=== PATIENT | male | born 1960 | race Native Hawaiian/Other Pacific Islander ===

== ENCOUNTER 2018-01-28 13:31 | Emergency (ER) | payer MEDICAID, OTHER ==
[~2018-01-28] VITALS: Ht 170.2 cm; Wt 92.0 kg
[~2018-01-28 13:31] MED LIST: OXCA300T PO
[2018-01-28] MEDS ORDERED: SODIUM CHLORIDE 0.9% FLUSH 10 ML FLUSH IVF PRN ×2 (13:45→14:00)
[2018-01-28 13:48] VITALS: BP 126/61; PULSE 81; RESP 22; TEMP 97.6; O2SAT 95
[2018-01-28 14:03] LABS: AUTOMATED NEUTROPHIL # 4.3 TH/MM3 (1.8-7.7); BASOPHIL % 0.6 % (0.0-2.0); EOSINOPHIL # 0.1 TH/MM3 (0-0.4); EOSINOPHIL % 1.9 % (0.0-4.0); HEMATOCRIT 43.5 % (39.0-51.0); HEMOGLOBIN 14.4 GM/DL (13.0-17.0); LYMPH % 34.1 % (9.0-44.0); LYMPHOCYTE # 2.7 TH/MM3 (1.0-4.8); MEAN CELL VOLUME 81.3 FL (80.0-100.0); MEAN CORPUSCULAR HEMOGLOBIN 26.9 PG (27.0-34.0); MEAN CORPUSCULAR HGB CONC 33.1 % (32.0-36.0); MONO % 8.6 % (0.0-8.0); MONOCYTE # 0.7 TH/MM3 (0-0.9); NEUT % 54.8 % (16.0-70.0); PLATELET COUNT 267 TH/MM3 (150-450); RED BLOOD COUNT 5.35 MIL/MM3 (4.50-5.90); RED CELL DISTRIBUTION WIDTH 13.1 % (11.6-17.2); WHITE BLOOD COUNT 7.8 TH/MM3 (4.0-11.0)
[2018-01-28 14:16] LABS: BICARBONATE 19.3 MEQ/L (21.0-32.0); CALCIUM 8.6 MG/DL (8.5-10.1); CREATININE 1.25 MG/DL (0.60-1.30)
[2018-01-28] MEDS ORDERED: VALPROATE INJ 500 MG in SODIUM CHLORIDE 0.9% INJ 100 ML IV ONE (14:45)
--- NOTE | 2018-01-28 17:53 | PD ---
HPI Chief Complaint: Seizure Time Seen by Provider: 13:45 Travel History International Travel<30 days: No Contact w/Intl Traveler<30days: No Traveled to known affect area: No History of Present Illness HPI This is a 57-year-old male with a history of seizure disorder, presents after having a tonic-clonic seizure. Patient reports that he has been taking all his medications as prescribed. Patient reports his last seizure was in 2016. Patient denies any head pain. Patient denies any pain anywhere. Patient denies any tongue lacerations. He reports that he takes Depakote, 500 mg in the morning and 500 mg at night. He denies missing any dosages. PFSH Past Medical History Arthritis: No Autoimmune Disease: No Cancer: No Cardiovascular Problems: Yes High Cholesterol: No Cerebrovascular Accident: No Diminished Hearing: No Endocrine: No Gastrointestinal Disorders: No GERD: No Genitourinary: No Headaches: Yes (FREQUENT) Hiatal Hernia: No Hypertension: No Immune Disorder: No Implanted Vascular Access Dvce: No Musculoskeletal: Yes Neurologic: Yes (SEIZURE) Psychiatric: No Reproductive: No Respiratory: No Immunizations Current: No Migraines: Yes Seizures: Yes Ulcer: No Past Surgical History Abdominal Surgery: Yes (GALL BLADDER REMOVED.) Cardiac Surgery: Yes (LOOP RECORDER) Cholecystectomy: Yes Other Surgery: Yes (2005 GALLBLADDER REMOVED) Social History Alcohol Use: Yes (RARELY) Tobacco Use: No Substance Use: No Allergies-Medications (Allergen,Severity, Reaction): Coded Allergies: shellfish derived (Unverified Allergy, Severe, Anaphylaxis, 04/06/17) Reported Meds & Prescriptions Reported Meds & Active Scripts Active Reported Oxcarbazepine 300 Mg Tab 300 Mg PO BID Review of Systems Except as stated in HPI: all other systems reviewed are Neg General / Constitutional: No: Fever, Chills HENT: No: Headaches, Neck Pain Cardiovascular: No: Chest Pain or Discomfort, Palpitations Respiratory: No: Cough, Shortness of Breath Gastrointestinal: No: Nausea, Vomiting, Abdominal Pain Genitourinary: No: Dysuria, Incontinence Musculoskeletal: No: Weakness, Pain Neurologic: Positive: Seizures, No: Weakness, Dizziness, Headache, Incontinence Physical Exam Narrative GENERAL: Well-developed well-nourished male in no acute respiratory distress. SKIN: Focused skin assessment warm/dry. HEAD: Atraumatic. Normocephalic. EYES: No scleral icterus. No injection or drainage. ENT: No nasal bleeding or discharge. Mucous membranes pink and moist. NECK: Trachea midline. Supple. CARDIOVASCULAR: Regular rate and rhythm. No murmur appreciated. RESPIRATORY: No accessory muscle use. Clear to auscultation. Breath sounds equal bilaterally. GASTROINTESTINAL: Abdomen soft, non-tender, nondistended. Hepatic and splenic margins not palpable. MUSCULOSKELETAL: No obvious deformities. No clubbing. No cyanosis. No edema. NEUROLOGICAL: Awake and alert. No obvious cranial nerve deficits. Motor grossly within normal limits. Normal speech. PSYCHIATRIC: Appropriate mood and affect; insight and judgment normal. Data Data Last Documented VS Vital Signs Date Time Temp Pulse Resp B/P (MAP) Pulse Ox O2 Delivery O2 Flow Rate FiO2 01/28/18 13:52 95 Room Air 01/28/18 13:48 97.6 81 22 126/61 (82) Orders Orders Complete Blood Count With Diff (01/28/18 13:45) Basic Metabolic Panel (Bmp) (01/28/18 13:45) Blood Glucose (01/28/18 13:45) Ecg Monitoring (01/28/18 13:45) Iv Access Insert/Monitor (01/28/18 13:45) Oximetry (01/28/18 13:45) Sodium Chloride 0.9% Flush (Ns Flush) (01/28/18 13:45) Valproic Acid (Depakene) (01/28/18 13:51) Sodium Chloride 0.9% Flush (Ns Flush) (01/28/18 14:00) Valproate Inj (Depacon Inj) (01/28/18 14:45) Labs Laboratory Tests Test 01/28/18 13:11 01/28/18 13:58 White Blood Count 7.8 TH/MM3 Red Blood Count 5.35 MIL/MM3 Hemoglobin 14.4 GM/DL Hematocrit 43.5 % Mean Corpuscular Volume 81.3 FL Mean Corpuscular Hemoglobin 26.9 PG Mean Corpuscular Hemoglobin Concent 33.1 % Red Cell Distribution Width 13.1 % Platelet Count 267 TH/MM3 Mean Platelet Volume 8.0 FL Neutrophils (%) (Auto) 54.8 % Lymphocytes (%) (Auto) 34.1 % Monocytes (%) (Auto) 8.6 % Eosinophils (%) (Auto) 1.9 % Basophils (%) (Auto) 0.6 % Neutrophils # (Auto) 4.3 TH/MM3 Lymphocytes # (Auto) 2.7 TH/MM3 Monocytes # (Auto) 0.7 TH/MM3 Eosinophils # (Auto) 0.1 TH/MM3 Basophils # (Auto) 0.0 TH/MM3 CBC Comment DIFF FINAL Differential Comment Blood Urea Nitrogen 11 MG/DL Creatinine 1.25 MG/DL Random Glucose 112 MG/DL Calcium Level 8.6 MG/DL Sodium Level 140 MEQ/L Potassium Level 3.8 MEQ/L Chloride Level 107 MEQ/L Carbon Dioxide Level 19.3 MEQ/L Anion Gap 14 MEQ/L Estimat Glomerular Filtration Rate 59 ML/MIN Valproic Acid (Depakene) Level 49 MCG/ML MDM Medical Decision Making Medical Screen Exam Complete: Yes Emergency Medical Condition: Yes Differential Diagnosis Metabolic derangement versus subtherapeutic Depakote level versus rate through seizure Narrative Course 57 year male with history of seizure disorder, presents after having a seizure. Patient's last seizure was in 2015. Patient has a Depakote level of 49. He has been IV loaded with 500 mg of Depakote. I spoke with Dr. Combs, patient's neurologist, who recommended we increase his nighttime dose to 1000 mg. He recommends continuing the 500 mg daily dose. I discussed this with the patient he is amenable. Dr. Combs states that he would see the patient in his office on Wednesday at 10 AM. Diagnosis Primary Impression: Seizure Additional Impression: Subtherapeutic Depakote level Additional Instructions: Increase your Depakote to 500 mg in the day and [address] Combs will see you on Wednesday in his office at 10 AM. Disposition: 01 DISCHARGE HOME Condition: Stable Tino Sutherland MD Jan 28, 2018 17:53
[2018-01-28] MEDS ORDERED: IBUPROFEN 600 MG TAB PO ONE (18:00)
[2018-01-28 18:24] VITALS: BP 114/58
== END 2018-01-28 18:26 | disposition home or self-care (01) ==
LOC: NEPC 13:31
DX: G40.909 Epilepsy, unspecified, not intractable, without status epilepticus (principal)
CPT/HCPCS: 80048; 80164; 85025; 96365; 96366

== ENCOUNTER 2018-07-05 23:05 | Observation (INO) ==
[2018-07-05] MEDS ORDERED: Famotidine PF Inj 20 MG/2 ML Vial IV.PUSH ONE (23:23)
[2018-07-05] MEDS ORDERED: MethylPREDNISolone Sod Succinate Inj 125 MG/2 ML Vial IV.PUSH ONE (23:23)
--- NOTE | 2018-07-05 23:40 | ED ---
HPI General Chief complaint: Allergic Reaction Stated complaint: poss allergic reaction Time Seen by Provider: 07/05/18 23:23 Source: patient and family History of Present Illness HPI narrative: 57-year-old male with a past medical history of anaphylactic shock and seizures presents to the emergency room complaining of acute allergic reaction with generalized hives and swelling of the upper lip, tongue and oropharynx. Patient denies shortness of breath at this time or chest pain. Patient took Benadryl prior to arrival With mild improvement of symptoms.Patient denies exposure to shellfish earlier where he is highly allergic. For the past 2 weeks the patient has had multiple episodes of skin hives without airway compromise or swelling unlike tonight. Related Data Home Medications Medication Instructions Recorded Confirmed levetiracetam [Keppra] 1,000 mg PO BID 07/05/18 07/05/18 Allergies Allergy/AdvReac Type Severity Reaction Status Date / Time shellfish derived Allergy Severe Anaphylaxis Verified 07/05/18 23:41 Review of Systems Constitutional Denies fever(s) Eyes Denies change in vision ENT Denies headache(s) and Denies nasal congestion Cardiovascular Denies chest pain Respiratory Denies dyspnea Gastrointestinal Denies abdominal pain Genitourinary Denies difficulty urinating Musculoskeletal Denies myalgias Integumentary/Breasts Denies rash Neurologic Denies headache(s) Psychiatric Denies depression Endocrine Denies polyuria Hematologic/Lymphatic Denies easy bruising Allergic/Immunologic Reports urticaria, Reports lip swelling and Reports throat swelling PMFSH Social History Social History Substance History: No History of Abuse Second Hand Smoke Exposure: No Smoking Status: Never smoker Tobacco Type: Cigarettes How Often Do You Have a Drink Containing Alcohol: Never Recent Travel in [facility] within the Last 8 Weeks: No Recent Out of Country Travel within the Last 8 Weeks: No Immunization History Tetanus Immunization: >5 Years Exam Narrative Exam Narrative: GENERAL: Patient is alert and oriented -3 SKIN: Focused skin assessment warm/dry.Multiple hives-like rash on the trunk and extremities HEAD: Atraumatic. Normocephalic. EYES: Pupils equal and round. No scleral icterus. No injection or drainage. ENT: No nasal bleeding or discharge. Mucous membranes pink and moist.Moderate swelling of the upper lip, soft palate and uvula.The left side of the tongue appears mildly swollen than the right side. NECK: Trachea midline. No JVD. CARDIOVASCULAR: Regular rate and rhythm. No murmur appreciated. RESPIRATORY: No accessory muscle use. Clear to auscultation. Breath sounds equal bilaterally. GASTROINTESTINAL: Abdomen soft, non-tender, nondistended. Hepatic and splenic margins not palpable. MUSCULOSKELETAL: No obvious deformities. No clubbing. No cyanosis. No edema. NEUROLOGICAL: Awake and alert. No obvious cranial nerve deficits. Motor grossly within normal limits. Normal speech. PSYCHIATRIC: Appropriate mood and affect; insight and judgment normal. Course Reevaluation(s) Reevaluation #1: Patient condition improved during the ER course.pt remains Stable with normal vital signs. I personally reexamined and counseled the patient about his diagnosis and results. Time: 03:02 Initial Documented Vital Signs Temperature 97.5 F L 07/05/18 23:11 Pulse Rate 64 07/05/18 23:11 Respiratory Rate 18 07/05/18 23:11 Blood Pressure 141/67 H 07/05/18 23:11 Pulse Oximetry 97 07/05/18 23:11 Last Documented Vital Signs Temperature 97.7 F 07/06/18 04:00 Pulse Rate 54 L 07/06/18 04:00 Respiratory Rate 18 07/06/18 04:00 Blood Pressure 120/70 07/06/18 04:00 Pulse Oximetry 96 07/06/18 04:00 Medical Decision Making [facility] Narrative Medical Screen Exam Complete: Yes Emergency Medical Condition: Yes Lab Data Result diagrams: 07/05/18 23:35 07/05/18 23:35 Lab Results 07/05/18 07/05/18 Range/Units 23:35 23:35 CBC w Diff Auto diff final WBC 7.6 (4.0-11.0) th/mm3 RBC 5.39 (4.50-5.90) mil/mm3 Hgb 14.6 (13.0-17.0) gm/dL Hct 43.5 (39.0-51.0) % MCV 80.6 (80.0-100.0) fL MCH 27.1 (27.0-34.0) pg MCHC 33.6 (32.0-36.0) % RDW 12.4 (11.6-17.2) % Plt Count 256 (150-450) th/mm3 MPV 8.4 (7.0-11.0) fL Neut % (Auto) 50.2 (16.0-70.0) % Lymph % (Auto) 40.7 (9.0-44.0) % Bledsoe % (Auto) 5.6 (0.0-8.0) % Eos % (Auto) 2.5 (0.0-4.0) % Baso % (Auto) 1.0 (0.0-2.0) % Neut # (Auto) 3.8 (1.8-7.7) th/mm3 Lymph # (Auto) 3.1 (1.0-4.8) th/mm3 Bledsoe # (Auto) 0.4 (0.0-0.9) th/mm3 Eos # (Auto) 0.2 (0.0-0.4) th/mm3 Baso # (Auto) 0.1 (0.0-0.2) th/mm3 WBC Differential . Differential Comment . Sodium 139 (136-145) meq/L Potassium 3.6 (3.5-5.1) meq/L Chloride 106 (98-107) meq/L Carbon Dioxide 26.6 (21.0-32.0) meq/L Anion Gap 6 (5-15) meq/L BUN 15 (7-18) mg/dL Creatinine 1.20 (0.60-1.30) mg/dL Estimated GFR 62 L (>89) mL/min Random Glucose 129 H (74-106) mg/dL Calcium 8.7 (8.5-10.1) mg/dL Total Bilirubin 0.3 (0.2-1.0) mg/dL AST 21 (15-37) U/L ALT 41 (12-78) U/L Alkaline Phosphatase 68 (45-117) U/L Total Protein 7.6 (6.4-8.2) g/dL Albumin 3.7 (3.4-5.0) g/dL Imaging Data Radiologist's impression: Chest X-Ray 07/05/18 23:33 CONCLUSION: No acute cardiopulmonary disease. Discharge Plan Discharge Disposition Patient Disposition: 30 Still Patient Discharge Condition Condition: Stable Discharge Details Diagnosis: Allergic reaction Physicians Team ED Provider: Alvaro Ashley Primary Care Provider: Holden Samuel Attending Provider: Joanna Lopez Status ED Status: Left Department Discharge Information Discharge Date/Time: 07/06/18 02:28
[2018-07-05 23:44] LABS: Baso # (Auto) 0.1 th/mm3 (0.0-0.2); Eos # (Auto) 0.2 th/mm3 (0.0-0.4); Eos % (Auto) 2.5 % (0.0-4.0); Hematocrit 43.5 % (39.0-51.0); Hemoglobin 14.6 gm/dL (13.0-17.0); Lymph # (Auto) 3.1 th/mm3 (1.0-4.8); Lymph % (Auto) 40.7 % (9.0-44.0); Mean Corpuscular HGB Conc 33.6 % (32.0-36.0); Mean Corpuscular Hemoglobin 27.1 pg (27.0-34.0); Mean Corpuscular Volume 80.6 fL (80.0-100.0); Mean Platelet Volume 8.4 fL (7.0-11.0); Mono # (Auto) 0.4 th/mm3 (0.0-0.9); Mono % (Auto) 5.6 % (0.0-8.0); Neut # (Auto) 3.8 th/mm3 (1.8-7.7); Neut % (Auto) 50.2 % (16.0-70.0); Platelet Count 256 th/mm3 (150-450); Red Blood Count 5.39 mil/mm3 (4.50-5.90); Red Cell Distribution Width 12.4 % (11.6-17.2); White Blood Count 7.6 th/mm3 (4.0-11.0)
[2018-07-05] MEDS ORDERED: Sod Chloride 0.9% Inj 1,000 ML IV.SIG SCH (23:45)
[2018-07-05 23:52] LABS: Chloride 106 meq/L (98-107); Potassium 3.6 meq/L (3.5-5.1); Sodium 139 meq/L (136-145)
[2018-07-05 23:55] LABS: Calcium 8.7 mg/dL (8.5-10.1)
[2018-07-05 23:56] LABS: Albumin 3.7 g/dL (3.4-5.0); Anion Gap 6 meq/L (5-15); Blood Urea Nitrogen 15 mg/dL (7-18); Carbon Dioxide 26.6 meq/L (21.0-32.0); Glucose,Random 129 mg/dL (74-106)
[2018-07-05 23:59] LABS: Alanine Aminotransferase 41 U/L (12-78); Aspartate Aminotransferase 21 U/L (15-37); Glomerular Filtration Rate 62 mL/min (>89)
[2018-07-06 00:01] LABS: Total Protein 7.6 g/dL (6.4-8.2)
--- NOTE | 2018-07-06 00:01 | XR ---
EXAM DATE: 07/05/2018 11:54 PM EST AGE/SEX: 57 years / Male INDICATIONS: Shortness of breath. CLINICAL DATA: This is the patient's initial encounter. Patient reports that signs and symptoms have been present for 1 day and indicates a pain score of 0/10. MEDICAL/SURGICAL HISTORY: None. None. COMPARISON: None. FINDINGS: A single AP view of the chest demonstrates the lungs to be symmetrically aerated without evidence of mass, infiltrate or effusion. The heart size is at the upper limits of normal. There is no evidence of pulmonary edema. There are overlying electrocardiogram leads. Osseous structures are intact. CONCLUSION: No acute cardiopulmonary disease. Electronically signed by: Dion Tinoco MD 07/06/2018 12:00 AM EST
[2018-07-06 00:02] LABS: Alkaline Phosphatase 68 U/L (45-117)
[2018-07-06] MEDS: Sod Chloride 0.9% Inj 1,000 ML IV.CONT SCH ×2 (05:11→13:59)
[2018-07-06] MEDS: MethylPREDNISolone Sod Succinate Inj 125 MG/2 ML Vial IV.PUSH SCH ×2 (06:29→13:34)
[2018-07-06] MEDS ORDERED: levETIRAcetam 1000mg/100mL Inj 100 ML IV.SIG SCH (08:00)
[2018-07-06] MEDS ORDERED: levETIRAcetam 500 MG Tablet PO SCH (09:00)
--- NOTE | 2018-07-06 10:06 | P.HPIM ---
History of Present Illness Service: [facility]/HEP Primary Care Physician: Holden Samuel MD Chief Complaint: Allergic reaction History of Present Illness: Patient is a 57-year-old male with a known past medical history of anaphylactic shock and seizure disorder who presented to the emergency room complaining of acute allergic reaction with generalized hives and swelling of the upper lip and tongue and oropharynx. Patient denied any shortness of breath or chest pain. Patient took Benadryl prior to coming to the hospital with some improvement of symptoms. He has allergies to shellfish but denies any recent exposure to shellfish. Has been having multiple episodes of skin hives without any airway compromise or swelling until last night when he presented. Still has some swelling but is able to talk and eat and swallow Family history is significant for father with stomach cancer and mother with hypertension States at home he takes Keppra as well as Benadryl Patient can be discharged home later today with prednisone, Pepcid, Atarax His swelling has improved Review of Systems All other systems reviewed negative except as stated in HPI PMFSH - History History Provided By: Patient - Medical History Medical History: Medical History (Last Reviewed 07/06/18 @ 09:59 by Esau Benítez DO) Epilepsy Pacemaker - Surgical History Surgical History: Surgical History (Last Updated 07/06/18 @ 09:59 by Esau Benítez DO) No history of previous surgery - Family History Family History: Family History (Last Updated 07/06/18 @ 09:59 by Esau Benítez DO) Other Family history of hypertension Family history- stomach cancer - Social History I have reviewed the patient's Social History: Yes - Tobacco History Second Hand Smoke Exposure: No Tobacco Use In Past 30 Days: No Smoking Status: Never smoker Tobacco Type: Cigarettes - Alcohol History How Often Do You Have a Drink Containing Alcohol: Never - Substance Use History Substance History: No History of Abuse - Travel History History of Recent Travel: No Recent Travel in the [place] Within the Last 8 Weeks: No Recent Travel Out of the Country Within the Last 8 Weeks: No - Immunization History Tetanus Immunization: >5 Years Medications and Allergies Active Medications: Active Medications Diphenhydramine HCl (Benadryl Inj) 50 mg IV.PUSH Q6H PRN PRN Reason: allergy symptoms Sodium Chloride (Ns Inj) 1,000 mls @ 100 mls/hr IV.CONT .Q10H CRISSY Last Admin: 07/06/18 05:11 Dose: 100 mls/hr Levetiracetam (Keppra 1000 Mg/100 Ml Premix) 100 mls @ 400 mls/hr IV.SIG Q12H CRISSY Last Infusion: 07/06/18 09:17 Dose: Infused Methylprednisolone Sodium Succinate (Solumedrol Inj) 60 mg IV.PUSH Q8HR CRISSY Last Admin: 07/06/18 06:29 Dose: 60 mg Ondansetron HCl (Zofran Inj) 4 mg IV.PUSH Q6H PRN PRN Reason: NAUSEA OR VOMITING Sodium Chloride (Ns Flush) 2 ml IV.FLUSH PRN PRN PRN Reason: FLUSH AFTER USING IV ACCESS Allergies Allergy/AdvReac Type Severity Reaction Status Date / Time shellfish derived Allergy Severe Anaphylaxis Verified 07/05/18 23:41 Home Medications Medication Instructions Recorded Confirmed Type levetiracetam [Keppra] 1,000 mg PO BID 07/05/18 07/05/18 History Exam Vital signs: Vital Signs 07/05/18 23:11 07/05/18 23:29 07/05/18 23:31 Temperature 97.5 F L Pulse Rate 64 62 Respiratory Rate 18 18 Blood Pressure 141/67 H 138/69 Pulse Oximetry 97 97 98 07/06/18 00:29 07/06/18 01:40 07/06/18 02:41 Temperature 98.1 F Pulse Rate 70 68 56 L Respiratory Rate 16 16 18 Blood Pressure 139/72 142/80 H 113/74 Pulse Oximetry 97 97 95 07/06/18 04:00 Temperature 97.7 F Pulse Rate 54 L Respiratory Rate 18 Blood Pressure 120/70 Pulse Oximetry 96 Intake & Output 07/05/18 07/06/18 07/06/18 18:59 06:59 18:59 Intake Total 1200 / 1200 100 / 100 Output Total 600 / 600 Balance 600 / 600 100 / 100 Weight 90.2 kg Intake: IV 1000 / 1000 100 / 100 NS Inj 1,000 ML @ 1000 mls/hr 1000 / 1000 IV.SIG BOLUS CRISSY Rx#:[id number] Keppra 1000 mg/100 mL Premix 100 / 100 100 ML @ 400 mls/hr IV.SIG Q12H CRISSY Rx#:[id number] Oral 0 / 0 Other 200 / 200 Output: Urine 600 / 600 Other: Other Intake Source Saline Solution Weight On Admission 90.5 kg Narrative: GENERAL: Awake alert and oriented x3 talkative and cooperative SKIN: Warm and dry. HEAD: Atraumatic. Normocephalic. EYES: Pupils equal and round. No scleral icterus. No injection or drainage. PERRLA EOMI ENT: No nasal bleeding or discharge. Mucous membranes pink and moist. Swelling around the lips especially the upper lip may be some swelling on left side of tongue NECK: Trachea midline. No JVD. CARDIOVASCULAR: Regular rate and rhythm. S1-S2 no S3 or S4 RESPIRATORY: No accessory muscle use. Clear to auscultation. Breath sounds equal bilaterally. GASTROINTESTINAL: Abdomen soft, non-tender, nondistended. Hepatic and splenic margins not palpable. MUSCULOSKELETAL: Extremities without clubbing, cyanosis, or edema. No obvious deformities. NEUROLOGICAL: Awake and alert. No obvious cranial nerve deficits. Motor grossly within normal limits. Five out of 5 muscle strength in the arms and legs. Normal speech. PSYCHIATRIC: Appropriate mood and affect; insight and judgment normal. Results - Labs CBC & Chem 7: 07/05/18 23:35 07/05/18 23:35 Labs: Short CBC 07/05/18 Range/Units 23:35 WBC 7.6 (4.0-11.0) th/mm3 Hgb 14.6 (13.0-17.0) gm/dL Hct 43.5 (39.0-51.0) % Plt Count 256 (150-450) th/mm3 BMP 07/05/18 23:35 Sodium 139 Potassium 3.6 Chloride 106 Carbon Dioxide 26.6 BUN 15 Creatinine 1.20 Calcium 8.7 Liver Function 07/05/18 Range/Units 23:35 Total Bilirubin 0.3 (0.2-1.0) mg/dL AST 21 (15-37) U/L ALT 41 (12-78) U/L Alkaline Phosphatase 68 (45-117) U/L Albumin 3.7 (3.4-5.0) g/dL - Imaging Impressions Chest X-Ray 07/05/18 23:33 CONCLUSION: No acute cardiopulmonary disease. Caprini VTE Risk Assessment Caprini VTE Risk Assessment: No/Low Risk (score <= 1) Caprini Risk Assessment Model: Point Value = 1 Point Value = 2 Point Value = 3 Point Value = 5 Age 41-60 Minor surgery BMI > 25 kg/m2 Swollen legs Varicose veins or History of unexplained or recurrent spontaneous Oral contraceptives or hormone replacement Sepsis (< 1 month) Serious lung disease, including pneumonia (< 1 month) Abnormal pulmonary function Acute myocardial infarction Congestive heart failure (< 1 month) History of inflammatory bowel disease Medical patient at bed rest Age 61-74 Arthroscopic surgery Major open surgery (> 45 min) Laparoscopic surgery (> 45 min) Malignancy Confined to bed (> 72 hours) Immobilizing plaster cast Central venous access Age >= 75 History of VTE Family history of VTE Factor V Leiden Prothrombin [id number] Lupus anticoagulant Anticardiolipin antibodies Elevated serum homocysteine Heparin-induced thrombocytopenia Other congenital or acquired thrombophilia Stroke (< 1 month) Elective arthroplasty Hip, pelvis, or leg fracture Acute spinal cord injury (< 1 month) Prophylaxis Regimen: Total Risk Factor Score Risk Level Prophylaxis Regimen 0-1 Low Early ambulation 2 Moderate Order ONE of the following: *Sequential Compression Device (SCD) *Heparin 5000 units SQ BID 3-4 Higher Order ONE of the following medications: *Heparin 5000 units SQ TID *Enoxaparin/Lovenox 40 mg SQ daily (WT < 150 kg, CrCl > 30 mL/min) *Enoxaparin/Lovenox 30 mg SQ daily (WT < 150 kg, CrCl > 10-29 mL/min) *Enoxaparin/Lovenox 30 mg SQ BID (WT < 150 kg, CrCl > 30 mL/min) AND/OR *Sequential Compression Device (SCD) 5 or more Highest Order ONE of the following medications: *Heparin 5000 units SQ TID (Preferred with Epidurals) *Enoxaparin/Lovenox 40 mg SQ daily (WT < 150 kg, CrCl > 30 mL/min) *Enoxaparin/Lovenox 30 mg SQ daily (WT < 150 kg, CrCl > 10-29 mL/min) *Enoxaparin/Lovenox 30 mg SQ BID (WT < 150 kg, CrCl > 30 mL/min) AND *Sequential Compression Device (SCD) Assessment and Plan - Plan Allergic reaction Patient can be discharged today Make sure he is on Pepcid Solu-Medrol will be switched to prednisone Atarax -We will need to follow-up with primary care and will more than likely need to follow-up with an analytical scientist Will make sure he has an epinephrine pen Seizure disorder continue on Keppra Patient can be discharged later today on p.o. medications Code Status: Full code Discussed Condition With: RN and patient and case management Discharge Planning: Discharge to home today H&P: Quality - VTE Deep Vein Thrombosis/Pulmonary Embolism Present on Admission: No
[2018-07-06 10:09] VITALS: RESP 20
--- NOTE | 2018-07-06 10:19 | P.DS ---
Date of admission: 07/06/18 01:05 Primary care physician: Holden Samuel MD Attending physician on discharge: Esau Benítez Anticipated date of discharge: 07/06/18 Brief History from admission: Patient is a 57-year-old male with a known past medical history of anaphylactic shock and seizure disorder who presented to the emergency room complaining of acute allergic reaction with generalized hives and swelling of the upper lip and tongue and oropharynx. Patient denied any shortness of breath or chest pain. Patient took Benadryl prior to coming to the hospital with some improvement of symptoms. He has allergies to shellfish but denies any recent exposure to shellfish. Has been having multiple episodes of skin hives without any airway compromise or swelling until last night when he presented. Still has some swelling but is able to talk and eat and swallow Family history is significant for father with stomach cancer and mother with hypertension States at home he takes Keppra as well as Benadryl Patient can be discharged home later today with prednisone, Pepcid, Atarax His swelling has improved Patient update on day of discharge: Patient is a 57-year-old male with a known past medical history of anaphylactic shock and seizure disorder who presented to the emergency room complaining of acute allergic reaction with generalized hives and swelling of the upper lip and tongue and oropharynx. Patient denied any shortness of breath or chest pain. Patient took Benadryl prior to coming to the hospital with some improvement of symptoms. He has allergies to shellfish but denies any recent exposure to shellfish. Has been having multiple episodes of skin hives without any airway compromise or swelling until last night when he presented. Still has some swelling but is able to talk and eat and swallow Family history is significant for father with stomach cancer and mother with hypertension States at home he takes Keppra as well as Benadryl Patient can be discharged home later today with prednisone, Pepcid, Atarax His swelling has improved DS: Diagnosis - Discharge Diagnosis (1) Seizure Status: Chronic (2) Allergic reaction Status: Acute DS: Medications - Discharge Medications Prescriptions: famotidine [Pepcid] 20 mg PO BID #60 tab hydroxyzine pamoate [Vistaril] 25 mg PO TID-QID PRN 30 Days #120 cap PRN Reason: Allergic Reaction levetiracetam [Keppra] 1,000 mg PO BID #60 tab prednisone 1 pack PO PER PKG DIR #1 each DS: Summary Hospital Course: Patient is a 57-year-old male with a known past medical history of anaphylactic shock and seizure disorder who presented to the emergency room complaining of acute allergic reaction with generalized hives and swelling of the upper lip and tongue and oropharynx. Patient denied any shortness of breath or chest pain. Patient took Benadryl prior to coming to the hospital with some improvement of symptoms. He has allergies to shellfish but denies any recent exposure to shellfish. Has been having multiple episodes of skin hives without any airway compromise or swelling until last night when he presented. Still has some swelling but is able to talk and eat and swallow Family history is significant for father with stomach cancer and mother with hypertension States at home he takes Keppra as well as Benadryl Patient can be discharged home later today with prednisone, Pepcid, Atarax His swelling has improved - Time Spent with Patient Total time spent providing and/or coordinating discharge services: Greater than 30 minutes - Quality: VTE Deep Vein Thrombosis/Pulmonary Embolism Present on Admission: No Exam Vital signs: Vital Signs 07/05/18 23:11 07/05/18 23:29 07/05/18 23:31 Temperature 97.5 F L Pulse Rate 64 62 Respiratory Rate 18 18 Blood Pressure 141/67 H 138/69 Pulse Oximetry 97 97 98 07/06/18 00:29 07/06/18 01:40 07/06/18 02:41 Temperature 98.1 F Pulse Rate 70 68 56 L Respiratory Rate 16 16 18 Blood Pressure 139/72 142/80 H 113/74 Pulse Oximetry 97 97 95 07/06/18 04:00 Temperature 97.7 F Pulse Rate 54 L Respiratory Rate 18 Blood Pressure 120/70 Pulse Oximetry 96 Intake & Output 07/05/18 07/06/18 07/06/18 18:59 06:59 18:59 Intake Total 1200 / 1200 100 / 100 Output Total 600 / 600 Balance 600 / 600 100 / 100 Weight 90.2 kg Intake: IV 1000 / 1000 100 / 100 NS Inj 1,000 ML @ 1000 mls/hr 1000 / 1000 IV.SIG BOLUS CRISSY Rx#:[id number] Keppra 1000 mg/100 mL Premix 100 / 100 100 ML @ 400 mls/hr IV.SIG Q12H CRISSY Rx#:[id number] Oral 0 / 0 Other 200 / 200 Output: Urine 600 / 600 Other: Other Intake Source Saline Solution Weight On Admission 90.5 kg Narrative: GENERAL: Awake alert and oriented x3 talkative and cooperative SKIN: Warm and dry. HEAD: Atraumatic. Normocephalic. EYES: Pupils equal and round. No scleral icterus. No injection or drainage. PERRLA EOMI ENT: No nasal bleeding or discharge. Mucous membranes pink and moist. Swelling around the lips especially the upper lip may be some swelling on left side of tongue NECK: Trachea midline. No JVD. CARDIOVASCULAR: Regular rate and rhythm. S1-S2 no S3 or S4 RESPIRATORY: No accessory muscle use. Clear to auscultation. Breath sounds equal bilaterally. GASTROINTESTINAL: Abdomen soft, non-tender, nondistended. Hepatic and splenic margins not palpable. MUSCULOSKELETAL: Extremities without clubbing, cyanosis, or edema. No obvious deformities. NEUROLOGICAL: Awake and alert. No obvious cranial nerve deficits. Motor grossly within normal limits. Five out of 5 muscle strength in the arms and legs. Normal speech. PSYCHIATRIC: Appropriate mood and affect; insight and judgment normal. Results Procedures completed during hospitalization: none Completed studies during hospitalization: Laboratory Results CBC w Diff Auto diff final 07/05/18 23:35 WBC 7.6 th/mm3 (4.0-11.0) 07/05/18 23:35 RBC 5.39 mil/mm3 (4.50-5.90) 07/05/18 23:35 Hgb 14.6 gm/dL (13.0-17.0) 07/05/18 23:35 Hct 43.5 % (39.0-51.0) 07/05/18 23:35 MCV 80.6 fL (80.0-100.0) 07/05/18 23:35 MCH 27.1 pg (27.0-34.0) 07/05/18 23:35 MCHC 33.6 % (32.0-36.0) 07/05/18 23:35 RDW 12.4 % (11.6-17.2) 07/05/18 23:35 Plt Count 256 th/mm3 (150-450) 07/05/18 23:35 MPV 8.4 fL (7.0-11.0) 07/05/18 23:35 Neut % (Auto) 50.2 % (16.0-70.0) 07/05/18 23:35 Lymph % (Auto) 40.7 % (9.0-44.0) 07/05/18 23:35 Gem % (Auto) 5.6 % (0.0-8.0) 07/05/18 23:35 Eos % (Auto) 2.5 % (0.0-4.0) 07/05/18 23:35 Baso % (Auto) 1.0 % (0.0-2.0) 07/05/18 23:35 Neut # (Auto) 3.8 th/mm3 (1.8-7.7) 07/05/18 23:35 Lymph # (Auto) 3.1 th/mm3 (1.0-4.8) 07/05/18 23:35 Gem # (Auto) 0.4 th/mm3 (0.0-0.9) 07/05/18 23:35 Eos # (Auto) 0.2 th/mm3 (0.0-0.4) 07/05/18 23:35 Baso # (Auto) 0.1 th/mm3 (0.0-0.2) 07/05/18 23:35 WBC Differential . 07/05/18 23:35 Differential Comment . 07/05/18 23:35 Sodium 139 meq/L (136-145) 07/05/18 23:35 Potassium 3.6 meq/L (3.5-5.1) 07/05/18 23:35 Chloride 106 meq/L (98-107) 07/05/18 23:35 Carbon Dioxide 26.6 meq/L (21.0-32.0) 07/05/18 23:35 Anion Gap 6 meq/L (5-15) 07/05/18 23:35 BUN 15 mg/dL (7-18) 07/05/18 23:35 Creatinine 1.20 mg/dL (0.60-1.30) 07/05/18 23:35 Estimated GFR 62 mL/min (>89) L 07/05/18 23:35 Random Glucose 129 mg/dL (74-106) H 07/05/18 23:35 Calcium 8.7 mg/dL (8.5-10.1) 07/05/18 23:35 Total Bilirubin 0.3 mg/dL (0.2-1.0) 07/05/18 23:35 AST 21 U/L (15-37) 07/05/18 23:35 ALT 41 U/L (12-78) 07/05/18 23:35 Alkaline Phosphatase 68 U/L (45-117) 07/05/18 23:35 Total Protein 7.6 g/dL (6.4-8.2) 07/05/18 23:35 Albumin 3.7 g/dL (3.4-5.0) 07/05/18 23:35 Impressions Chest X-Ray 07/05/18 23:33 CONCLUSION: No acute cardiopulmonary disease. Labs on day of discharge: Labs from last 24 hours 07/05/18 07/05/18 23:35 23:35 CBC w Diff Auto diff final WBC 7.6 RBC 5.39 Hgb 14.6 Hct 43.5 MCV 80.6 MCH 27.1 MCHC 33.6 RDW 12.4 Plt Count 256 MPV 8.4 Neut % (Auto) 50.2 Lymph % (Auto) 40.7 Gem % (Auto) 5.6 Eos % (Auto) 2.5 Baso % (Auto) 1.0 Neut # (Auto) 3.8 Lymph # (Auto) 3.1 Gem # (Auto) 0.4 Eos # (Auto) 0.2 Baso # (Auto) 0.1 WBC Differential . Differential Comment . Sodium 139 Potassium 3.6 Chloride 106 Carbon Dioxide 26.6 Anion Gap 6 BUN 15 Creatinine 1.20 Estimated GFR 62 L Random Glucose 129 H Calcium 8.7 Total Bilirubin 0.3 AST 21 ALT 41 Alkaline Phosphatase 68 Total Protein 7.6 Albumin 3.7 - Impressions ITS Impressions Chest X-Ray 07/05/18 23:33 CONCLUSION: No acute cardiopulmonary disease. Discharge Plan - Discharge Disposition Patient Disposition: 01 Discharge Home - Discharge Condition Condition: Stable - Discharge Order Discharge Orders: Discharge Order (Routine); Ordered 07/06/18 Ordered By: Esau Benítez - Discharge Details Anticipated Discharge Date: 07/06/18 Discharge Comment: DC TO HOME - Physicians Team Primary Care Provider: Holden Samuel Attending Provider: Esau Benítez
[2018-07-06 13:48] VITALS: O2SAT 94
[2018-07-06 17:22] VITALS: BP 112/56; PULSE 76; TEMP 96.6
== END 2018-07-06 17:28 | disposition home or self-care (01) ==
LOC: PHED 23:05 → PHEDA 23:05 → PH3 07-06 02:22
PROVIDERS: ADMIT Hospitalist; ATTEND Hospitalist